=== PATIENT | male | born 1940 | race Caucasian/White ===

== ENCOUNTER 2017-02-12 07:35 | Emergency (ER) | payer OTHER ==
[~2017-02-12] VITALS: Ht 185.4 cm; Wt 106.6 kg
--- NOTE | ~2017-02-12 | CT71 ---
[facility] A Service of [facility] RADIOLOGY TEXT RESULTS PATIENT: KARIN COTTO LOCATION: [facility] : 40 UNIT #: [id number] AGE: [address]: Megan Mg SEX: M ORDER DR: [id number] [facility] [address]. [place], [place] [address] [id number] E MR#: [id number] Acc #: [id number] NAME: KARIN COTTO : 1940 SEX: M STUDY DATE/TIME: 02/12/2017 9:16 UNIT: [facility] ROOM: STUDY DESCRIPTION: CT Head Wo Contrast Attending Physician: Megan Mg Pa-C Ordering Physician: Ed Santiago Funez M.D. Primary Care Physician: Generic Doctor Not In System MEDICAL IMAGING REPORT This report is preliminary unless electronic signature is present EXAM Head CT no contrast 02/12/2017. INDICATIONS 76-year-old male who fell from the steps at home this morning, laceration to the nose and fourth digit. On blood thinners. TECHNIQUE Noncontrast CT brain was performed. This CT exam was performed with one or more of the following radiation dose reduction techniques: automatic exposure control, adjustment of mA and/or kV according to patient size, and iterative reconstruction. COMPARISON No comparison studies. FINDINGS Sulci and ventricles demonstrate generalized atrophy but are otherwise unremarkable. No midline shift. No evidence of acute intracranial hemorrhage. There is no mass, mass effect or edema to suggest acute infarct and no extraaxial fluid collections are present. Globes are intact. Bones intact. Sinuses clear. IMPRESSION 1. Atrophy but no clearly acute intracranial process. No evidence of acute intracranial hemorrhage. Dictated by... Davian Walsh M.D. THIS IS AN ELECTRONICALLY VERIFIED REPORT Davian Walsh M.D. at 02/13/2017 7:35 AM [facility] A Service of [facility] RADIOLOGY TEXT RESULTS PATIENT: KARIN COTTO LOCATION: [facility] : 40 UNIT #: [id number] AGE: [address]: Megan Mg SEX: M ORDER DR: HELDER/kimberly TD: 02/13/2017 07:00 JOB #: [id number] MEDICAL IMAGING REPORT Page 1 of 1 COPY
--- NOTE | ~2017-02-12 | CR115 ---
[facility] A Service of [facility] RADIOLOGY TEXT RESULTS PATIENT: KARIN COTTO LOCATION: [facility] : 40 UNIT #: [id number] AGE: [address]: Megan Mg SEX: M ORDER DR: [id number] [facility] [address] [place], [place] [address] [id number] E MR#: [id number] Acc #: [id number] NAME: KARIN COTTO : 1940 SEX: M STUDY DATE/TIME: 02/12/2017 8:15 UNIT: [facility] ROOM: STUDY DESCRIPTION: CR Finger 2 View [address] Attending Physician: Megan Mg Pa-C Ordering Physician: Ed Santiago Funez M.D. Primary Care Physician: Generic Doctor Not In System MEDICAL IMAGING REPORT This report is preliminary unless electronic signature is present EXAM Right fifth digit series 02/12/2017 INDICATIONS Pain in the fifth digit, laceration to the fifth fingertip this morning, fell on a gravel driveway. TECHNIQUE Three views right fifth digit. No comparisons. FINDINGS There is a distal tuft amputation injury of the fifth digit. There are tiny osseous densities associated with the distal tuft suspicious for tiny chip or avulsion fracture fragments from the distal tuft. No distinct evidence of retained opaque foreign body. The bones are osteoporotic. IMPRESSION 1. 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 2. Tiny osseous densities associated with the distal tuft suspicious for tiny chip or avulsion fracture fragments. No convincing evidence of retained opaque foreign body. Dictated by... Davian Walsh M.D. THIS IS AN ELECTRONICALLY VERIFIED REPORT Davian Walsh M.D. at 02/13/2017 7:34 AM HELDER/jaqueline TD: 02/13/2017 06:45 JOB #: [id number] [facility] A Service of [facility] RADIOLOGY TEXT RESULTS PATIENT: KARIN COTTO LOCATION: [facility] #: [id number] : 40 UNIT #: [id number] AGE: [address]: Megan Mg SEX: M ORDER DR: MEDICAL IMAGING REPORT Page 1 of 1 COPY
== END 2017-02-12 10:35 ==
LOC: CED 07:35
DX: S62.636B Displaced fracture of distal phalanx of right little finger, initial encounter for open fracture (principal); S00.31XA Abrasion of nose, initial encounter; S80.211A Abrasion, right knee, initial encounter; Z23 Encounter for immunization; W01.0XXA Fall on same level from slipping, tripping and stumbling without subsequent striking against object, initial encounter; Y92.009 Unspecified place in unspecified non-institutional (private) residence as the place of occurrence of the external cause
CPT/HCPCS: 70450; 73140; 90471; 90715; 99285